=== PATIENT | female | born 1940 | race Caucasian/White ===

== ENCOUNTER → 2017-11-19 09:34 | Outpatient (CLI) | payer MEDICARE, SELFPAY ==
[2017-11-19 10:51] LABS: Add Manual Diff / Slide Review NO; Basophils Percent Auto 0.7 % (0-2); Eosinophils Percent Auto 3.7 % (2-4); Hematocrit 41.1 % (36-46); Hemoglobin 13.9 g/dL (12.0-16.0); Lymphocytes Percent Auto 25.3 % (25-40); Mean Corpuscular HGB Conc 33.8 % (30-36); Mean Corpuscular Hemoglobin 31.8 PG (26-34); Mean Corpuscular Volume 94.3 fL (80-100); Monocytes Percent Auto 6.8 % (3-14); Neutrophils Absolute Auto 6100 /uL (3000-5900); Neutrophils Percent Auto 63.5 % (50-75); Platelet Count 321 X10^3/uL (150-400); Red Blood Cell Count 4.35 X10^6/uL (4.0-5.2); Red Cell Distribution Width 13.4 % (11.6-14.8); White Blood Cell Count 9.5 X10^3/uL (4.5-11.0)
[2017-11-19 11:10] LABS: Alanine Aminotransferase 15 IU/L (9-52); Albumin 3.9 g/dL (3.5-5.0); Albumin Globulin Ratio 1.1 (1.0-2.8); Alkaline Phosphatase 72 U/L (38-126); Aspartate Aminotransferase 22 IU/L (14-36); Bilirubin Total 0.3 mg/dL (0.2-1.3); Blood Urea Nitrogen 20 mg/dL (7-17); Calcium 10.1 mg/dL (8.4-10.2); Carbon Dioxide 29 mmol/L (22-32); Chloride 103 mmol/L (98-107); Estimated Glomerular Filt Rate > 60.0 mL/min (>60); Globulin 3.4 g/dL (1.7-4.1); Glucose 69 mg/dL (80-110); HEMOLYSIS < 15 (0-50); Potassium 5.2 mmol/L (3.4-5.1); Sodium 138 mmol/L (137-145); Total Protein 7.3 g/dL (6.3-8.2)
== END ==
PROVIDERS: Family Provider Internal Medicine; PCP Internal Medicine; Visit Provider Internal Medicine
DX: F32.9 Major depressive disorder, single episode, unspecified (principal); E03.9 Hypothyroidism, unspecified; E87.5 Hyperkalemia
CPT/HCPCS: 36415; 80053; 84443; 85025

== ENCOUNTER → 2017-11-29 13:44 | Outpatient (CLI) | payer MEDICARE, SELFPAY | PROVIDERS: Family Provider Internal Medicine; PCP Internal Medicine; Visit Provider Internal Medicine | DX: M85.851 Other specified disorders of bone density and structure, right thigh (principal); Z78.0 Asymptomatic menopausal state; E07.9 Disorder of thyroid, unspecified; F17.200 Nicotine dependence, unspecified, uncomplicated; Z90.722 Acquired absence of ovaries, bilateral | CPT/HCPCS: 77080 ==

== ENCOUNTER → 2018-01-23 16:05 | Outpatient (CLI) | payer MEDICARE, SELFPAY ==
--- NOTE | 2018-01-23 | DI.MRI.S_ITS ---
PROCEDURE: MR LUMBAR SPINE WO CON INDICATIONS: LOW BACK PAIN TECHNIQUE: Noncontrast sagittal T1 spin echo and T2 fast echo, sagittal STIR, axial T1 and T2 fast spin echo through the lumbar spine. In cases with scoliosis, additional coronal T2 fast spin echo may be performed. COMPARISON: [facility], MR, L-SPINE WITHOUT CONTRAST, 11/18/2015, 14:46. [facility], MR, L-SPINE WITHOUT CONTRAST, 02/23/2013, 8:38. [facility], MR, L-SPINE WITHOUT CONTRAST, 07/31/2010, 18:53. FINDINGS: Image quality: Diagnostic, with note made of motion artifact. Alignment and Curvature: Moderate dextroconvex scoliotic curvature is seen. Bone Marrow: Marrow is of normal overall signal. No acute vertebral body compression fractures. Spinal Cord: Conus medullaris terminates at the L1 level. Visualized cord demonstrates normal signal and size. Paraspinous Soft Tissues: No paravertebral masses. T12-L1: No significant abnormality is seen. L1-L2: The disc height is well-preserved. Loss of disc signal is seen at this level. Mild generalized disc bulge is seen. Mild facet joint hypertrophy is seen. Moderate bilateral neural foraminal narrowing is seen. Mild central canal narrowing is seen. These degenerative changes have progressed compared to the prior examination. L2-L3: Moderate loss of disc height is seen. Loss of disc signal is seen. Moderate disc bulge is seen, which is eccentric to the left. Moderate facet joint hypertrophy is seen. Moderate bilateral neural foraminal narrowing is seen. Moderate central canal narrowing is seen. These degenerative changes are slightly progressed compared to the prior. L3-L4: Mild loss of disc height is seen. Loss of disc signal is seen. Moderate generalized disc bulge is seen. Moderate facet joint hypertrophy is seen. There is moderate right-sided and moderate to severe right-sided neural foraminal narrowing seen. There is a degree of impingement seen upon the exiting right L3 nerve root. Moderate central canal narrowing is seen. When comparison is made with the prior examination, these findings are similar. L4-L5: The disc height is well-preserved. Loss of disc signal is seen at this level. Moderate disc bulge is seen, which is eccentric to the right. Moderate facet hypertrophy is seen. There is fluid seen within the facet joints themselves, as on series 6 image 28. There is moderate left-sided and moderate to severe right-sided neural foraminal narrowing seen. Moderate central canal narrowing is seen, as on series 6 image 27. When comparison is made with the prior examination, these findings are similar. L5-S1: The disc height is well-preserved. Loss of disc signal is seen at this level. Moderate disc bulge is seen, which is eccentric to the right. There is moderate to prominent right-sided and moderate left-sided facet hypertrophy seen. There is moderate to severe right-sided and minimal left-sided neural foraminal narrowing seen. Mild central canal narrowing is seen. No significant change from the prior. IMPRESSION: Multiple levels of lumbar spine degenerative change are seen, which are progressed at the L1-L2 and L2-L3 levels compared to 2016. Moderate dextroconvex scoliosis. Dictated by: Erlin Galdamez M.D. on 01/23/2018 at 16:40 Approved by: Erlin Galdamez M.D. on 01/23/2018 at 16:46
== END ==
PROVIDERS: PCP Internal Medicine; Visit Provider Physical Medicine & Rehabilitation Pain Medicine
DX: M54.5 Low back pain (principal); M51.36 Other intervertebral disc degeneration, lumbar region; M51.37 Other intervertebral disc degeneration, lumbosacral region; M41.9 Scoliosis, unspecified
CPT/HCPCS: 72148

== ENCOUNTER → 2018-11-18 14:56 | Outpatient (CLI) | payer MEDICARE, SELFPAY ==
--- NOTE | 2018-11-18 | DI.RAD.S_ITS ---
PROCEDURE: XR CHEST 2V INDICATIONS: PNEUMONIA TECHNIQUE: 2 views of the chest were acquired. COMPARISON: [facility], , CHEST 2 VIEW, 05/20/2008, 15:34. FINDINGS: Surgical changes and devices: None. Lungs and pleura: Subtle infiltrate in lingula. Chronic interstitial prominence appears unchanged. No focal consolidation or pleural effusion. No pneumothorax. Mediastinum: Mediastinal contours are normal. Heart size is normal. Bones and chest wall: No suspicious bony abnormalities. Soft tissues appear unremarkable. IMPRESSION: Possible early lingular pneumonia. Dictated by: Ayden Carreon M.D. on 11/18/2018 at 16:24 Approved by: Ayden Carreon M.D. on 11/18/2018 at 16:57
== END ==
PROVIDERS: PCP Internal Medicine; Visit Provider Internal Medicine
DX: J18.9 Pneumonia, unspecified organism (principal)
CPT/HCPCS: 71046

== ENCOUNTER → 2019-03-18 18:11 | Outpatient (ROUT) | payer MEDICARE, SELFPAY | PROVIDERS: PCP Internal Medicine; Visit Provider Internal Medicine | DX: R39.9 Unspecified symptoms and signs involving the genitourinary system (principal) | CPT/HCPCS: 87077; 87086; 87186 ==

== ENCOUNTER → 2019-03-20 12:10 | Outpatient (CLI) | payer MEDICARE, SELFPAY ==
[2019-03-20 12:54] LABS: Alanine Aminotransferase 13 IU/L (<35); Albumin 4.2 g/dL (3.5-5.0); Albumin Globulin Ratio 1.2 (1.0-2.8); Alkaline Phosphatase 61 U/L (38-126); Aspartate Aminotransferase 24 IU/L (14-36); Bilirubin Total 0.4 mg/dL (0.2-1.3); Blood Urea Nitrogen 20 mg/dL (7-17); Calcium 10.3 mg/dL (8.4-10.2); Carbon Dioxide 26 mmol/L (22-32); Chloride 103 mmol/L (98-107); Cholesterol 190 mg/dL (140-199); Estimated Glomerular Filt Rate 53.8 mL/min (>60); Globulin 3.4 g/dL (1.7-4.1); Glucose 91 mg/dL (80-110); HDL Cholesterol 56 mg/dL (40-60); HEMOLYSIS 24 (0-50); LDL Cholesterol Calculated 116 mg/dL (<100); Potassium 5.3 mmol/L (3.4-5.1); Sodium 138 mmol/L (137-145); Total Protein 7.6 g/dL (6.3-8.2); Triglycerides 91 mg/dL (35-150)
[2019-03-20 13:22] LABS: TSH w/ Reflex to FT4 2.64 uIU/mL (0.47-4.68)
== END ==
PROVIDERS: PCP Internal Medicine; Visit Provider Internal Medicine
DX: Z00.00 Encounter for general adult medical examination without abnormal findings (principal); M81.0 Age-related osteoporosis without current pathological fracture; F32.9 Major depressive disorder, single episode, unspecified; E03.9 Hypothyroidism, unspecified
CPT/HCPCS: 36415; 80053; 80061; 84443

== ENCOUNTER → 2020-03-02 15:17 | Outpatient (ROUT) | payer MEDICARE, SELFPAY | PROVIDERS: PCP Internal Medicine; Visit Provider Internal Medicine | DX: R39.9 Unspecified symptoms and signs involving the genitourinary system (principal); N39.0 Urinary tract infection, site not specified; R31.9 Hematuria, unspecified | CPT/HCPCS: 87086 ==

== ENCOUNTER → 2021-11-30 11:07 | Outpatient (CLI) | payer MEDICARE, SELFPAY ==
--- NOTE | 2021-11-30 | DI.RAD.S_ITS ---
PROCEDURE: XR LUMBAR SPINE MIN 4V INDICATIONS: Spinal stenosis, lumbar region without neurogenic claudicati TECHNIQUE: 5 views of the lumbar spine were acquired, including bilateral oblique views. COMPARISON: None. FINDINGS: Bones: 5 nonrib-bearing vertebrae are present. There is moderate dextroscoliosis of lumbar spine centered at L3 level. Degenerative endplate changes and bilateral facet arthrosis throughout lumbar spine is seen. No significant spondylolisthesis. No vertebral body compression fractures. No suspicious bony lesions. Soft tissues: Overlying bowel gas pattern is normal. No suspicious soft tissue calcifications. Oblique images: No pars defects. IMPRESSION: Moderate degenerative disc disease throughout lumbar spine. No acute compression fracture or significant spondylolisthesis. Moderate dextroscoliosis as above. No gross pars defects. Dictated by: Blayne Celaya M.D. on 11/30/2021 at 11:38 Approved by: Blayne Celaya M.D. on 11/30/2021 at 11:43
== END ==
PROVIDERS: PCP Physician Assistant; Referring Provider Physician Assistant; Visit Provider Physician Assistant
DX: M51.36 Other intervertebral disc degeneration, lumbar region (principal); M48.061 Spinal stenosis, lumbar region without neurogenic claudication; M41.86 Other forms of scoliosis, lumbar region
CPT/HCPCS: 72110

== ENCOUNTER 2021-12-26 12:28 | Outpatient (CLI) | payer MEDICARE, SELFPAY ==
[2021-12-26] VITALS (8 sets, daily range): BP systolic 140–176; BP diastolic 62–77; PULSE 42–48; RESP 12–22; TEMP 36.6; O2SAT 95–100
--- NOTE | 2021-12-26 12:33 | DI.RAD.S_ITS ---
PROCEDURE: PAIN L INTERLAMINAR/CAUDAL INJ INDICATIONS: SPONDYLOSIS COMPARISON: None. FINDINGS: Fluoroscopic spot filming was performed to verify placement of spinal needles at the L5-S1 level(s), as labeled on the films. Appropriate location(s) of the needle tip(s) was confirmed by injection of iodinated contrast. IMPRESSION: Fluoroscopic guidance Approved by: Levon Damico M.D. on 12/26/2021 at 16:46
--- NOTE | 2021-12-26 13:26 | PC.NURSE ---
MD aware of her allergy to iodine, patient reports that she had a reaction one time after a CT scan with iodine and that is the only thing they can come of for the reaction.
[2021-12-26] MEDS: MIDAZOLAM 2 MG/2 ML VIAL 1 MG IV (14:18)
[2021-12-26 14:21] LABS: COVID19 -Nasal RAPID Negative (Negative)
[2021-12-26] MEDS: BUPIVACAINE 0.25% (PF) VIAL 2 ML INJ (14:21)
[2021-12-26] MEDS: IOPAMIDOL 15 ML VIAL 3 ML INJ (14:21)
[2021-12-26] MEDS: BETAMETHASONE 30 MG/5 ML MDV 6 MG INJ (14:21)
[2021-12-26] MEDS: DEXAMETHASONE 10 MG/ML VIAL 20 MG INJ (14:22)
--- NOTE | 2021-12-26 14:32 | P.PCN_ITS ---
Date/Time/Diagnoses Date of procedure: 12/26/21 Time of procedure: 14:32 Pre-procedure diagnosis: 1. HNP WITH RADICULAR FEATURES, 2. MULTILEVEL CENTRAL STENOSIS, Post-procedure diagnosis: same Procedure Notes Procedure: 1. FLUOROSCOPICALLY GUIDED CONTRAST CONTROLLED INTERLAMINAR EPIDURAL STEROID INJECTION -L4/5 Indications: Kadie is referred by [facility] for treatment of Bilateral Foraminal Stenosis R>L LE symptoms. Physician: Daniel Duval Total Fluoroscopy time (seconds): 8 Total sedation minutes: 9 Complications: none Procedure in detail & Post-procedure care: FINDINGS Multilevel Central Spinal Stenosis with Nerve Root Compression DESCRIPTION OF PROCEDURE Fluoroscopically guided, contrast-controlled L4/5 translaminar epidural steroid injection. Following review of allergy and review of potential side effects and complications, including, but not necessarily limited to, infection, allergic reaction, local tissue breakdown, temporary as well as permanent nerve injury, paralysis, stroke and possible , the patient indicated that the patient understood and agreed to proceed. An informed consent document was signed by the patient, witnessed by a nurse, and placed in the patient's chart. Additionally, other treatment options including modalities, medications, and physical therapy were reviewed with the patient. After review of previous anaesthesic history and IV conscious sedation the patient was deemed safe to proceed with today?s procedure with IV conscious sedation as ASA class II designation. Safety time-out was performed to confirm patient ID, procedure to be performed and site of procedure. IV sedation was accomplished with a combination of 1mg of Versed was administered by the RN after DO order, titrated to patient comfort during the course of the procedure while the patient remained responsive to all verbal commands In the prone position, following sterile prep and drape of the lumbar region, the L4/5 translaminar space was identified fluoroscopically. The skin was anesthetized via a 25-gauge, 1.5inch needle with 1% lidocaine solution. At this point, a 22-gauge short bevel spinal needle was atraumatically introduced and a dvanced under fluoroscopic guidance into the region of the L4/5 translaminar space. Depth was confirmed on lateral view. Radiological data, including multiple fluoroscopic views of the lumbar spine, reveal a spinal needle at the L4/5 translaminar space. Lateral views then show placement of the needle in the epidural space. Subsequent views show contrast material flowing superiorly and inferiorly in the epidural space. No vascular or intrathecal uptake is observed. At this point, using loss of resistance technique with saline and air, the epidural space was entered. This was confirmed following negative aspiration with injection of approximately 1.5cc of Isovue 200, showing excellent epidural flow without vascular or intrathecal uptake. At this point, 1cc of 1% lidocaine solution combined with 3cc or 20mg of dexamethasone and 6mg betamethasone was injected without incident. The patient tolerated the procedure well without signs or symptoms of complications prior to transfer to the recovery area continued monitoring without incident. The patient was then transferred to the recovery area where they were observed for an appropriate period of time after the injection. The patient reported a VAS score of 6 prior to the procedure and a post- procedure VAS of 0. POST OP INSTRUCTIONS The patient was provided a Pain Log to continue to record their response to the target-specific procedure prior to follow-up visit with their referring physician. Additionally, specific post-injection care instructions and a contact number to our office were provided if concerns arise regarding possible complications associated with the procedure are suspected.
== END 2021-12-26 14:55 | disposition home or self-care (01) ==
LOC: RAD 12:32
PROVIDERS: PCP Physician Assistant; Referring Provider Physical Medicine & Rehabilitation; Visit Provider Physical Medicine & Rehabilitation
DX: M54.16 Radiculopathy, lumbar region (principal); M47.816 Spondylosis without myelopathy or radiculopathy, lumbar region; M48.061 Spinal stenosis, lumbar region without neurogenic claudication
CPT/HCPCS: 62323; 87635; J0702; J1100; J2250; J3490

== ENCOUNTER 2022-05-08 12:08 | Outpatient (CLI) | payer MEDICARE, SELFPAY ==
[2022-05-08] VITALS (8 sets, daily range): BP systolic 143–182; BP diastolic 65–85; PULSE 43–57; RESP 13–23; TEMP 36.2; O2SAT 20–100
--- NOTE | 2022-05-08 12:10 | DI.RAD.S_ITS ---
PROCEDURE: PAIN SI JOINT INJECTION TODD COMPARISON: [facility], XA, PAIN L INTERLAMINAR/CAUDAL INJ, 12/26/2021, 14:20. [facility], CR, XR LUMBAR SPINE MIN 4V, 11/30/2021, 11:16. INDICATIONS: Bilateral sacroiliac DISORDER FINDINGS: Fluoroscopic spot filming was performed to verify placement of spinal needles involving both sacroiliac joints. Appropriate location of the needle tips was confirmed by injection of iodinated contrast. IMPRESSION: Intraprocedural examination demonstrating appropriate positions of the needles. Dictated by: Erlin Galdamez M.D. on 05/08/2022 at 15:35 Approved by: Erlin Galdamez M.D. on 05/08/2022 at 15:36
[2022-05-08] MEDS: IOPAMIDOL 15 ML VIAL 3 ML INJ (13:21)
[2022-05-08] MEDS: BUPIVACAINE 0.5% (PF) 30 ML VIAL 5 ML INJ (13:22)
[2022-05-08] MEDS: BETAMETHASONE 30 MG/5 ML MDV 12 MG INJ (13:22)
[2022-05-08] MEDS: LIDOCAINE 1% (PF) 5 ML INJ (13:22)
[2022-05-08] MEDS: MIDAZOLAM 2 MG/2 ML VIAL 1 MG IV (13:23)
--- NOTE | 2022-05-08 13:31 | PM.PROC.IR.1 ---
Date/Time/Diagnoses Date of procedure: 05/08/22 Time of procedure: 13:31 Pre-procedure diagnosis: Sacroiliac joint pain/DJD Post-procedure diagnosis: same Procedure Notes Procedure: Fluoroscopic guided contrast controlled bilateral sacroiliac joint injection Indications: Kadie is referred by [facility] [place] for treatment of bilateral sacroiliac joint DJD Physician: Daniel Duval Total Fluoroscopy time (seconds): 15 Total sedation minutes: 17 Complications: none Procedure in detail & Post-procedure care: Description of procedure Fluoroscopic guided, contrast controlled bilateral sacroiliac joint injection Following review of allergies and review of potential side effects and complications, including, but not necessarily limited to, infection, allergic reaction, local tissue breakdown, temporary as well as permanent nerve injury, paralysis, stroke and possible , the patient indicated that they understood and agreed to proceed. An informed consent was signed by the patient, witnessed by a nurse, and placed in the patient's chart. Additionally, other treatment options including modalities, medications, and physical therapy were reviewed with the patient. After review of previous anaesthesic history and IV conscious sedation the patient was deemed safe to proceed with today?s procedure with IV conscious sedation as ASA class II designation. Safety time-out was performed to confirm patient ID, procedure to be performed and site of procedure. IV sedation was accomplished with a combination of 1mg Versed were administered by the RN after DO order, titrated to patient comfort during the course of the procedure while the patient remained responsive to all verbal commands In the prone position following sterile prep and drape of the pelvic region, the hyper lucency on in the inferior aspect of the sacroiliac joint was identified fluoroscopically the skin was anesthetized be a 25 gauge 1.5 inch needle with approximately 2cc of 1% lidocaine solution. At this point, a 22 gauge 3 in spinal needle was atraumatically introduced and advanced under fluoroscopic guidance into the inferior aspect of the right sacroiliac joint. Following negative aspiration, approximately 0.3cc of Isovue-300 was injected confirming intra-articular placement without vascular uptake. Radiographic data, including multiple fluoroscopic views of the pelvis, reveals a spinal needle in the sacroiliac joint hyper lucent zone. Subsequent view show flow contrast tear superiorly and inferiorly within the joint capsule without vascular intrathecal uptake. At this point a total of 1cc of 0.5% Marcaine was combined with 1cc of 6mg of betamethasone was injected without incident. Attention was then refocused the left sacroiliac joint where the procedure was replicated. The procedure tolerated the procedure well without signs or symptoms of complications prior to transfer to the recovery area continued monitoring without incident. The patient was then transferred to the recovery area with a bur observed for an appropriate time after the injection. The patient reverted a vas score of 7 prior to the procedure and post-procedure vas of 1. Postop instructions The patient was provided with a pain like to continue to record the patient's response to the target specific procedure prior to the patient's follow-up visit with the referring physician. Additionally, specific post injection care instructions and a contact number to our office were provided if concerns arise regarding the possible complications associated with procedure are suspected.
--- NOTE | 2022-05-08 13:48 | PC.NURSE ---
Patient received 1mg versed at 1310 not 1323. I attempted to edit the time in the MAR and was unable to.
== END 2022-05-08 13:49 | disposition home or self-care (01) ==
PROVIDERS: PCP Physician Assistant; Referring Provider Physical Medicine & Rehabilitation; Visit Provider Physical Medicine & Rehabilitation
DX: M53.3 Sacrococcygeal disorders, not elsewhere classified (principal); M46.1 Sacroiliitis, not elsewhere classified
CPT/HCPCS: 27096; 99152; J0702; J2250

== ENCOUNTER 2023-05-31 13:29 | Emergency (ER) | payer MEDICARE, SELFPAY ==
[2023-05-31 13:29] VITALS: BP 184/79; PULSE 65; RESP 20; TEMP 36.9; O2SAT 98; BMI 29.1
--- NOTE | 2023-05-31 13:37 | DI.CT.S_ITS ---
PROCEDURE: CT HEAD/BRAIN WO CON INDICATIONS: GLF/HEAD/FACE INJURY TECHNIQUE: Noncontrast 4.5 mm thick angled axial sections acquired from the foramen magnum to the vertex, with coronal and sagittal reformats. For radiation dose reduction, the following was used: automated exposure control, adjustment of mA and/or kV according to patient size. COMPARISON: None. FINDINGS: Image quality: Diagnostic. CSF spaces: Basal cisterns are patent. No extra-axial fluid collections. The ventricles are symmetric in size and shape. Brain: No intracranial bleeds or masses. There is cerebral volume loss for age, with resultant ventricular and sulcal prominence. There are periventricular and deep white matter chronic small vessel ischemic changes. There is intracranial internal carotid artery atherosclerosis. Skull and face: Calvarium and visualized facial bones appear intact, without suspicious lesions. Sinuses: Visualized sinuses and mastoids are clear. IMPRESSION: No acute intracranial pathology. Dictated by: Pete Dent M.D. on 05/31/2023 at 14:15 Approved by: Pete Dent M.D. on 05/31/2023 at 14:16
--- NOTE | 2023-05-31 13:37 | DI.CT.S_ITS ---
PROCEDURE: CT FACIAL BONES WO CON INDICATIONS: GLF/HEAD/FACE INJURY TECHNIQUE: Noncontrast 2.5 mm thick axial images acquired from the mandible through the frontal sinuses, with coronal and sagittal reformatting. For radiation dose reduction, the following was used: automated exposure control, adjustment of mA and/or kV according to patient size. COMPARISON: None. FINDINGS: Image quality: Excellent. Bones and teeth: Orbital don are intact. Sinus don show no fracture or deformity. Nasal bones and septum are intact. Visualized portions of the mandible demonstrate no fractures or subluxation. Zygomatic arches are intact. Pterygoid plates are intact. Visualized portions of the skull base and auditory canals are intact. Sinuses: Paranasal sinuses are aerated, without fluid levels, mucosal thickening, or mucoceles. Mastoid air cells are aerated. Soft tissues: No edema, masses, or fluid collections on the right but at the midline and just to the left of midline in the forehead area there appears to be soft tissue contusion. No enlarged lymph nodes. No soft tissue lacerations or debris. Vascular: Visualized vascular structures appear normal in the absence of contrast. Bony vascular foramina and canals are intact. IMPRESSION: No fracture or intracranial injury found. Soft tissue contusion at and to the left of midline in the forehead area. Nondisplaced anterior nasal bone fractures cannot be entirely excluded but no displaced fractures are found. Dictated by: Pete Dent M.D. on 05/31/2023 at 14:17 Approved by: Pete Dent M.D. on 05/31/2023 at 14:19
--- NOTE | 2023-05-31 13:37 | DI.CT.S_ITS ---
PROCEDURE: CT CERVICAL SPINE WO CON INDICATIONS: GLF/HEAD/FACE INJURY TECHNIQUE: Noncontrast 3 mm thick sections acquired from the skull base to the T4 level. Sagittal and coronal reformats were then constructed. For radiation dose reduction, the following was used: automated exposure control, adjustment of mA and/or kV according to patient size. COMPARISON: None. FINDINGS: Image quality: Excellent. Bones: No fractures or dislocations. Visualized superior ribs are intact. Soft tissues: Prevertebral soft tissues are normal in thickness. No paravertebral hematomas. No apical pneumothoraces. Note is made of aneurysmal dilatation of the proximal descending thoracic aorta measuring up to 3.8 cm. IMPRESSION: No displaced fracture or traumatic subluxation. 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 Dictated by: Pete Dent M.D. on 05/31/2023 at 14:21 Approved by: Pete Dent M.D. on 05/31/2023 at 14:24
--- NOTE | 2023-05-31 13:37 | ED.FALL ---
HPI - Fall General Chief Complaint: Fall Stated Complaint: GLF Time Seen by Provider: 05/31/23 13:30 Source: EMS Mode of arrival: EMS History of Present Illness HPI Narrative: A 3-year-old female presents by EMS from home for face injury after ground level fall. Patient states she was in her garage when she tripped and landed face 1st on the concrete. She denies loss of consciousness but called EMS to help her get back up. Medics on scene recommended she be evaluated in the emergency department. She denies use of blood thinners. Related Data Home Medications Medication Instructions Recorded Confirmed albuterol sulfate 90 mcg/actuation 2 puff inhalation Q4-6H 12/04/21 07/18/22 aerosol inhaler bupropion HCl 75 mg tablet 75 mg PO BID 12/04/21 07/18/22 estradiol 1 mg tablet 1 mg PO DAILY 12/04/21 07/18/22 gabapentin 600 mg tablet 600 mg PO BID 12/04/21 07/18/22 hydrocodone 5 mg-acetaminophen 325 1 tab PO Q6-8H 12/04/21 07/18/22 mg tablet latanoprost 0.005 % eye drops 1 drp EYE-BOTH BEDTIME 12/04/21 07/18/22 levothyroxine 50 mcg tablet 50 mcg PO DAILY 12/04/21 07/18/22 Previous Rx's Medication Instructions Recorded celecoxib 200 mg capsule (Celebrex) 200 mg PO DAILY #30 caps 07/18/22 Allergies Allergy/AdvReac Type Severity Reaction Status Date / Time iodine Allergy Mild SYNCOPE Verified 05/31/23 13:45 Penicillins Allergy Mild SEVERELY Verified 05/31/23 13:45 ILL Review of Systems Review of Systems Narrative: Negative except as noted above Patient History Medical History Shoulder impingement COPD (chronic obstructive pulmonary disease) Depression due to physical illness Asthma Facet arthropathy, lumbar Lumbar stenosis with neurogenic claudication Sacral dysfunction Scoliosis Surgical History H/O wrist surgery History of ankle surgery H/O: hysterectomy Family History Father Acquired scoliosis Mother Cancer Arthritis Social History Smoking Status: Current every day smoker Smoking Status: Current every day smoker Substance Use Type: does not use Exam Initial Vital Signs Initial Vital Signs: Vital Signs Temperature 98.5 F 05/31/23 13:29 Pulse Rate 65 05/31/23 13:29 Respiratory Rate 20 05/31/23 13:29 Blood Pressure 184/79 H 05/31/23 13:29 Pulse Oximetry 98 05/31/23 13:29 Oxygen Delivery Method Room Air 05/31/23 13:29 Const: Awake, alert, obvious trauma to face Eyes: PERRL, EOMI, subconjunctival hemorrhage left eye, vision normal per patient ENT: Swelling around left eye and nose, no nasal septal hematoma Cardiac: regular rate, regular rhythm RESP: unlabored, clear bilaterally, no wheezing GI: Atraumatic, soft, nontender MSK: Atraumatic, full range of motion, pulses equal Skin: Intact, no lesions, extensive swelling and bruising of left side face Neuro: AO x3, CN II-XII grossly intact, moves all extremities Course Orders Ordered: Discontinued Medications Bacitracin (Bacitracin Oint 0.9 Gm Pckt) 1 applic TOP NOW ONE Stop: 05/31/23 14:57 Last Admin: 05/31/23 15:05 Dose: 1 applic Documented By: OW Vital Signs Vital signs: Vital Signs - 8 hr 05/31/23 13:29 05/31/23 13:53 05/31/23 14:00 Temperature 98.5 F Pulse Rate 65 48 L 52 L Respiratory Rate 20 18 18 Blood Pressure 184/79 H 166/81 H 165/86 H Pulse Oximetry 98 96 96 Oxygen Delivery Method Room Air Room Air Room Air MDM - Fall MDM Narrative Medical decision making narrative: Ground level mechanical fall with facial injury. Patient has extensive swelling to the left side of her face including left periorbital region, however pupils are equal and reactive, extraocular motions are intact, patient states her vision is at its baseline. There is a small subconjunctival hemorrhage present, however with vision normal I have much low suspicion for other ocular injury. Patient states that she took a hydrocodone before she arrived in his not need any extra pain medications. Ice is applied to her face. CT imaging significant only for possible nondisplaced nasal bone fractures. Patient informed of CT results. She states she was hydrocodone at home that she takes for her chronic back pain. Patient was advised of imaging findings and care measures for home. #415 - Emergency Medicine: Utilization of CT for Minor Blunt Head Trauma (Adult) Patient is 18 or older, presenting with minor blunt head trauma. Head CT (including cosigned orders) was ordered by an emergency personal care aide for trauma because the patient: [ ] is vomiting\ severe/dangerous mechanism of injury was identified [ ] is experiencing a severe headache [ ] sustained loss of consciousness [ ] GCS less than 15 [ ] is experiencing amnesia of the event or focal neurologic deficit [ ] sustained injury above the clavicles [ ] is suspected of taking anticoagulant medications [ x ] is 65 years or older [ ] is intoxicated Patient has one or more of the following conditions that are excluded from the measure: [ ] Patient has ventricular shunt [ ] Patient has brain tumor [ ] Patient is [ ] Patient has multi-system trauma [ ] Patient taking an antiplatelet medication (excluding aspirin) Discharge Plan Departure Patient Disposition: Home Clinical Impression: Hematoma, Fall, Subconjunctival hemorrhage Instructions: DI for Hematoma (Bruise) Activity Restrictions/Additional Instructions: You were seen today after a fall. Your CTs were normal, you may have a nasal bone fracture, however this was not clearly seen on the CT scan. Your face is very bruised, this will gradually resolve on its own. Apply as much ice as needed for comfort. Take your normal home pain medications. Follow up with your primary care physician. The bleeding on the white part of your eye we will also resolve on its own with conservative treatments Prescriptions: No Action hydrocodone-acetaminophen 5-325 mg tablet 1 tab PO Q6-8H Patient Comments: take 1 tablet by mouth every 4 to 6 hours if needed for pain (MAX... (REFER TO PRESCRIPTION NOTES). bupropion HCl 75 mg tablet 75 mg PO BID Patient Comments: take 1 tablet by mouth twice a day levothyroxine 50 mcg tablet 50 mcg PO DAILY Patient Comments: take 1 tablet by mouth every morning estradiol 1 mg tablet 1 mg PO DAILY Patient Comments: take 1 tablet by mouth once daily gabapentin 600 mg tablet 600 mg PO BID Patient Comments: take 1 tablet by mouth twice a day latanoprost 0.005 % drops 1 drp EYE-BOTH BEDTIME Patient Comments: instill 1 drop into both eyes at bedtime albuterol sulfate 90 mcg/actuation HFA aerosol inhaler 2 puff inhalation Q4-6H Patient Comments: inhale 2 puffs by mouth every 4 hours if needed celecoxib [Celebrex] 200 mg capsule 200 mg PO DAILY Qty: 30 2RF Referrals: Lissa George PA-C [Primary Care Provider] - Stand Alone Forms: Patient Portal/API
[2023-05-31 13:53] VITALS: BP 166/81; PULSE 48; RESP 18; O2SAT 96
[2023-05-31 14:00] VITALS: BP 165/86; PULSE 52; RESP 18; O2SAT 96
--- NOTE | 2023-05-31 14:21 | PC.NURSE ---
Pt HR ranges from 48-55bpm. Pt reports that this is her baseline HR and that she does not feel symptomatic. Denies dizziness, CP, palpitations or SOB.
[2023-05-31 15:00] VITALS: BP 162/85; PULSE 55; RESP 18; O2SAT 98
[2023-05-31] MEDS: BACITRACIN OINT 0.9 GM PCKT 1 APPLIC TOP (15:05)
--- NOTE | 2023-05-31 15:07 | PC.NURSE ---
1450: C collar removed. Pt was able to sit herself up in bed and walk to the bathroom with a steady gait without any assistance. Pt denies dizziness, CP, SOB. Pt used the restroom and ambulate back to her room. 1500: Taxi called for pt. Pt reports being able to pay and reports that she is confident she will be able to get back into her home. This RN gave pt education on fall prevention measures and suggested to get better fitting shoes. Her current slippers are too small for her mildly swollen feet. Pt verbalized an understanding despite reporting that these are her favorite shoes. 1505: Bacitracin applied to superficial laceration on her L brow. No active bleeding.
== END 2023-05-31 15:10 | disposition home or self-care (01) ==
PROVIDERS: Emergency Provider Emergency Medicine; PCP Physician Assistant
DX: H11.32 Conjunctival hemorrhage, left eye (principal); R03.0 Elevated blood-pressure reading, without diagnosis of hypertension; S00.83XA Contusion of other part of head, initial encounter; W18.30XA Fall on same level, unspecified, initial encounter
CPT/HCPCS: 70450; 70486; 72125; 99283; 99284